=== PATIENT | female | born 1990 | race Two or more races ===

== ENCOUNTER → 2024-03-15 | Outpatient (CLI) | payer OTHER, SELFPAY ==
[2024-03-15 10:58] LABS: Collection Type, Urine Clean Catch
[2024-03-15 11:14] LABS: Basophils % (Auto) 1 % (0-2.5); Eosinophils # (Auto) 0.1 Thou/mm3 (0.0-0.5); Eosinophils % (Auto) 1 % (0-10); Hematocrit 38.4 % (36.0-46.0); Hemoglobin 13.4 g/dL (12.0-16.0); Immature Granulocytes % (Auto) 0 % (0-0); Immature Granulocytes Auto 0.02 Thou/mm3 (0.00-0.00); Lymphocytes % (Auto) 17 % (10-50); Mean Corpuscular HGB Conc 34.9 g/dl (31.0-37.0); Mean Corpuscular Hemoglobin 31.8 pg (25.0-35.0); Mean Corpuscular Volume 91 fL (80-100); Monocytes # (Auto) 0.4 Thou/mm3 (0.0-0.8); Monocytes % (Auto) 6 % (0-12); Neutrophils # (Auto) 4.6 Thou/mm3 (1.8-7.7); Neutrophils % (Auto) 75 % (37-80); Nucleated Red Blood Cell % 0 /100 WBC (0); Platelet Count 204 Thou/mm3 (140-440); RDW Standard Deviation 39.6 fL (36.4-46.3); Red Blood Count 4.22 Miln/mm3 (4.00-5.20); White Blood Count 6.1 Thou/mm3 (3.6-11.0)
[2024-03-15 11:15] LABS: Bilirubin,Urine Negative (Negative); Blood,Urine Negative (Negative); Clarity,Urine Clear (Clear/Hazy); Color,Urine Lt-Yellow (Lt Yel-Yel); Culture Indicated,Urine Not Indicated; Glucose, Urine Negative (Negative); Ketones,Urine Negative (Negative); Leukocyte Esterase,Urine Negative (Negative); Nitrite,Urine Negative (Negative); PH,Urine 5.5 (5.0-7.0); Protein,Urine Negative (Neg - Trace); RBC,Urine 1 /hpf (0-3); Squamous Epithelial Cell,Urine 1 /hpf (0-5); Urobilinogen,Urine Negative mg/dL (0.0-1.0); WBC,Urine 1 /hpf (0-5)
[2024-03-15 11:43] LABS: Alanine Aminotransferase 10 U/L (10-49); Albumin, Serum 4.7 gm/dL (3.5-5.0); Albumin/Globulin Ratio 2.2 (1.2-2.2); Alkaline Phosphatase 61 U/L (46-116); Anion Gap 8 (7-16); Aspartate Amino Transferase 15 U/L (0-34); BUN/Creatinine Ratio 17 Ratio (12-20); Bilirubin,Total 0.8 mg/dL (0.3-1.2); Blood Urea Nitrogen 12 mg/dL (9-23); Calcium 9.3 mg/dL (8.3-10.6); Calcium (Corrected) 9.3 mg/dL (8.5-10.1); Carbon Dioxide 25.7 mMol/L (20.0-31.0); Cardiac Risk Estimate 2.6 RATIO (3.7-5.6); Chloride 105 mMol/L (98-107); Cholesterol 153 mg/dL (132-200); Creatinine (Component) 0.7 mg/dL (0.6-1.3); Globulin 2.1 gm/dL (2.3-3.5); Glucose 86 mg/dL (74-106); HDL Cholesterol 58 mg/dL (40-60); LDL Cholesterol,Calculated 85 mg/dL (0-130); Osmolality,Calculated 276 (275-295); Sodium 139 mMol/L (136-145); Thyroid Stimulating Hormone 0.45 uIU/mL (0.55-4.78); Total Protein 6.8 gm/dL (5.7-8.2); Triglycerides 51 mg/dL (30-150); eGFR > 60 See Note
== END | disposition home or self-care (01) ==
LOC: COPL 10:03
PROVIDERS: PCP Family Medicine; Referring Provider Physician Assistant; Visit Provider Physician Assistant
DX: Z00.00 Encounter for general adult medical examination without abnormal findings (principal); E04.1 Nontoxic single thyroid nodule
CPT/HCPCS: 36415; 80053; 80061; 81001; 82306; 84443; 85025

== ENCOUNTER → 2024-04-01 | Outpatient (CLI) | payer OTHER, SELFPAY ==
--- NOTE | 2024-04-01 11:45 | XR_ITS ---
Examination: Thyroid sonography complete TECHNIQUE: Grayscale sonographic images thyroid lobes are color flow analysis Exam date and time: April 01, 2024 1215 hours INDICATIONS: Thyroid sonogram July 11, 2023 pole right thyroid nodule 7 mm FINDINGS: Right thyroid 4.6 x 2.1 x 2.0 cm Upper pole nodule 10 x 5 x 9 mm Left thyroid 5.3 x 1.4 x 1.9 cm Upper pole cyst 3 x 2 mm Midpole nodule 3 x 3 mm IMPRESSION: Enlarging upper pole right thyroid nodule, consider ultrasound-guided fine-needle aspiration of this nodule
== END | disposition home or self-care (01) ==
LOC: CDIM 11:29
PROVIDERS: PCP Family Medicine; Referring Provider Physician Assistant; Visit Provider Physician Assistant
DX: E04.1 Nontoxic single thyroid nodule (principal)
CPT/HCPCS: 76536

== ENCOUNTER 2024-08-21 10:36 | Outpatient (AMB) | payer OTHER, SELFPAY ==
--- NOTE | 2024-08-21 10:53 | AMB.GYNCLNOT ---
Vital Signs 08/21/24 11:06 Height 1.63 m Height Method Stated Weight 68.266 kg Weight Measurement Method Standing Scale BMI 25.8 BP 131/87 H Blood Pressure Source Automatic Cuff Blood Pressure Location Left Upper Arm Position Sitting Respiration 18 Pulse 89 Pulse Source Monitor Temp 97.2 F Temp Source Oral Pulse Oximetry (%) 98 Oxygen Delivery Method Room Air Allergies/Home Meds Allergies & Medications Allergies egg Allergy (Verified 08/21/24 10:53) Diarrhea Medication Reconciliation escitalopram oxalate 10 mg tablet (Lexapro) 10 mg PO QDAY 08/21/24 [History] fluconazole 150 mg tablet 150 mg PO QWEEK 6 weeks #6 tabs 08/21/24 [Rx] Intake Visit Data Collection New Patient or Established: New Patient not seen in past 3 years at [facility] (considered New) Reason for Visit:: HERE FOR HORMONAL CONERNS Seen by Clinical Staff ONLY (RN/MA): No Planned Giving Officer Required: No Do You Feel Safe at Home: Yes Authorities Contacted: N/A PCP or OBGYN visit in last 3 months: Yes Hx Now: No Are you currently on any form of Control: No Last menstrual period: 08/06/24 Pain Present Currently: No Pain Scale Used: Maya-Lopez/Numerical Pain scale:: 0 Smoking Status Smoking Status: Never smoker 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 Usually cycles are 28 days apart. Wants to be checked for PCOS. Has a history of two vaginal deliveries in the past. She has a 13-year-old son who weighed 7 pounds at and was a vacuum delivery in [place] and she has a 6-year-old daughter who was a little under 6 pounds who was born 3 to 4 weeks early delivered at [place] Same father of the baby for both pregnancies Patient is currently trying to get for greater than a year CLINICAL DOCUMENTATION SPEC: Past Medical History Past Medical History: Yes Hx Gastrointestinal Disorders and No Hx Diabetes Mellitus Type 2 Additional Operations/Hospitalizations (year & reason): Cholecystectomy 2015 Other Relevant History: Recurrent yeast infections is circumcised -1-0-2 x 2 Anxiety /depression Patient states her weight can fluctuate up to 20 pounds within a couple months. She is currently on an injection for weight loss. She has some type of thyroid problem with the nodule they are working up. She may be hyperthyroid. She has an appointment coming up with an char dust cleaner and salvager. Questionnaires Covid-19 Vaccine Questionnaire Has patient been vacinated for Covid-19 Have you been vacinated for Covid-19: Yes PHQ-9 PHQ-2 Over the last 2 weeks, how often have you been bothered by any of the following problems? 1. Little interest or pleasure in doing things: not at all 2. Feeling down, depressed, or hopeless: not at all Total score: 0 PHQ-9 3. Trouble falling or staying asleep, or sleeping too much: Not at all 4. Feeling tired or having little energy: Not at all 5. Poor appetite or overeating: Not at all 6. Feeling bad about yourself - or that you are a failure or have let yourself or your family down: Not at all 7. Trouble concentrating on things, such as reading the newspaper or watching television: Not at all 8. Moving or speaking so slowly that other people could have noticed? - Or the opposite - being so fidgety or restless that you have been moving around a lot more than usual: not at all 9. Thoughts that you would be better off or of hurting yourself in some way: Not at all Total score: 0 If you checked off any problems, how difficult have these problems made it for you to do your work, take care of things at home, or get along with other people?: not difficult at all Source: Developed by Drs. Rudy Sanchez, Eliana Senior, Ike Ray and colleagues, with an educational joan from [employer]. 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 She wants all her hormones tested. She thinks she has PCOS. She stated that in into left lower quadrant pain and some irregular vaginal bleeding. She reports frequent yeast infections and she has been trying to get more than a year. She has been with the same partner for all her pregnancies ,her oldest son is 13 years old she also has a 6-year-old daughter. Both were vaginal deliveries. No history of dysmenorrhea or extremely heavy cycles. No painful periods. No painful intercourse. No history of abdominal surgery to cause scarring in her pelvis. No history of endometriosis. She is on Lexapro for anxiety and is on one of the Ozempic type medications for weight loss. Patient states her weight fluctuates up to 15 to 20 pounds in a month or 2. Recently she has been diagnosed with some type of thyroid nodule and states she is hyperthyroid and has an appointment with an char dust cleaner and salvager. Her primary is Dr. Nate Andrade and she was told not to get util her thyroid is worked up and I definitely agree with this. The patient reports constipation, bloating ,abnormal bleeding ,vaginal itching, fertility concerns also anxiety and depression. Exam General Limitations: no limitations General Appearance: alert, in no apparent distress, comfortable, cooperative, healthy appearing, well groomed and anxious (Talks very quickly) Neck Neck exam: Present normal inspection, full ROM and trachea midline Chest Chest inspection: Present normal inspection and symmetric chest wall rise Resp Respiratory exam: Present normal lung sounds bilaterally Card Cardiovascular exam: Present regular rate, normal rhythm and normal heart sounds Abdominal Abdominal exam: Present soft and normal bowel sounds Psych Psychiatric exam: Present normal affect and normal mood Skin Skin exam: Present warm, dry, intact and normal color Office Procedures OB Clinic LOC & Office Proc's Nursing/Assessment Patient Status: Initial/New Patient OB Clinic Nursing Assessment: Medication Reconciliation, Update PMH in EMR and Vital Signs OB Clinic Coordination of Care: Education Complex Pt/Fam, Consent,records obtained, informed consent, Lab and Imaging orders, Results/Orders obtained and Staff clarify orders Miscellaneous Interventions: Pelvic/Pap Smear Set up New Patient Charge New Patient Point Assignment: 1104 New Patient Point Charge: DRUG ABUSE TREATMENT SPECIALIST Level 3 (5215-1071) Assessment & Plan Diagnosis / Problem List (1) DUB (dysfunctional uterine bleeding): Status: Acute Assessment and Plan: Patient would like lab work checked. Check LH FSH estradiol. Check all thyroid levels. Check a prolactin. Check a transvaginal ultrasound. Patient states that she is not diabetic so this was not checked. Encouraged the patient to follow-up with her char dust cleaner and salvager about her thyroid nodule and thyroid medication. Discouraged until her thyroid condition is stable. Reassurance given that patient most likely does not have PCOS. I would recommend her significant other see his primary care to get a semen analysis and told her 40% of the time with infertility the underlying cause is a male factor. I am unsure why the patient gains and loses weight quickly. 10 to 20 pounds in a month or two seems extreme. Patient should discuss this further with her thyroid specialist. We will call her for follow-up once her lab and ultrasound are back. (2) Yeast vaginitis: Status: Acute Assessment and Plan: Diflucan weekly x 6 weeks
[2024-08-21 11:06] VITALS: BP 131/87; PULSE 89; RESP 18; TEMP 36.2; O2SAT 98; BMI 25.8
== END 2024-08-21 11:58 | disposition home or self-care (01) ==
LOC: HODSOBC 10:36
PROVIDERS: PCP Family Medicine; Referring Provider Family Medicine; Supervising Provider Obstetrics & Gynecology; Visit Provider Obstetrics & Gynecology
DX: N93.8 Other specified abnormal uterine and vaginal bleeding (principal); E04.1 Nontoxic single thyroid nodule; B37.31 Acute candidiasis of vulva and vagina
CPT/HCPCS: 99203; G0463

== ENCOUNTER → 2024-08-21 | Outpatient (CLI) | payer OTHER, SELFPAY ==
[2024-08-21 17:01] LABS: Free T3 2.5 pg/mL (2.3-4.2); Free T4 (Free Thyroxine) 1.17 ng/dL (0.89-1.76); Thyroid Stimulating Hormone 0.71 uIU/mL (0.55-4.78)
[2024-08-21 17:02] LABS: Follicle Stimulating Hormone 3.13 mIU/mL (See Note)
== END | disposition home or self-care (01) ==
LOC: COPL 15:53
PROVIDERS: PCP Family Medicine; Referring Provider Obstetrics & Gynecology; Visit Provider Obstetrics & Gynecology
DX: N93.8 Other specified abnormal uterine and vaginal bleeding (principal)
CPT/HCPCS: 36415; 82670; 82681; 83001; 83002; 84146; 84439; 84443; 84481

== ENCOUNTER → 2024-09-09 | Outpatient (CLI) | payer OTHER, SELFPAY ==
--- NOTE | 2024-09-09 14:00 | XR_ITS ---
Examination: Transvaginal ultrasound of the pelvis, complete Technique: Transvaginal sonographic images pelvis performed using porras scale imaging Exam date and time: September 09, 2024 1426 hours INDICATIONS: Pelvic pain and vaginal bleeding beginning 2 months ago FINDINGS: Uterus 9.3 cm no uterine mass or intrauterine gestation Endometrial stripe 0.9 cm Right ovary 3.6 cm arterial flow multiple follicles, septated cyst 18 x 19 mm Left ovary 2.7 cm arterial flow Mild fluid in the cul-de-sac IMPRESSION: Septated right ovarian cyst 13 x 18 x 19 mm, recommend 6 month follow-up.
== END | disposition home or self-care (01) ==
LOC: CDIM 14:01
PROVIDERS: PCP Family Medicine; Referring Provider Obstetrics & Gynecology; Visit Provider Obstetrics & Gynecology
DX: N83.291 Other ovarian cyst, right side (principal)
CPT/HCPCS: 76830

== ENCOUNTER → 2024-10-01 | Outpatient (CLI) | payer OTHER, SELFPAY ==
[2024-10-01 14:24] LABS: Collection Type, Urine Clean Catch; WBC,Urine 0 /hpf (0-5)
[2024-10-01 14:24] LABS: Basophils # (Auto) 0.0 Thou/mm3 (0.0-0.2); Basophils % (Auto) 1 % (0-2.5); Eosinophils # (Auto) 0.1 Thou/mm3 (0.0-0.5); Eosinophils % (Auto) 1 % (0-10); Hematocrit 38.6 % (36.0-46.0); Hemoglobin 12.9 g/dL (12.0-16.0); Immature Granulocytes Auto 0.01 Thou/mm3 (0.00-0.00); Lymphocytes # (Auto) 1.3 Thou/mm3 (1.0-4.8); Lymphocytes % (Auto) 21 % (10-50); Mean Corpuscular HGB Conc 33.4 g/dl (31.0-37.0); Mean Corpuscular Hemoglobin 31.8 pg (25.0-35.0); Mean Corpuscular Volume 95 fL (80-100); Monocytes # (Auto) 0.3 Thou/mm3 (0.0-0.8); Monocytes % (Auto) 4 % (0-12); Neutrophils # (Auto) 4.7 Thou/mm3 (1.8-7.7); Neutrophils % (Auto) 73 % (37-80); Nucleated Red Blood Cell # 0.00 Thou/mm3 (0.00-0.00); Nucleated Red Blood Cell % 0 /100 WBC (0); Platelet Count 227 Thou/mm3 (140-440); RDW Standard Deviation 41.7 fL (36.4-46.3); Red Blood Count 4.06 Miln/mm3 (4.00-5.20); White Blood Count 6.4 Thou/mm3 (3.6-11.0)
[2024-10-01 14:42] LABS: Alanine Aminotransferase 13 U/L (10-49); Albumin, Serum 4.8 gm/dL (3.5-5.0); Albumin/Globulin Ratio 2.1 (1.2-2.2); Alkaline Phosphatase 70 U/L (46-116); Amylase 103 U/L (30-118); Anion Gap 10 (7-16); Aspartate Amino Transferase 20 U/L (0-34); BUN/Creatinine Ratio 9 Ratio (12-20); Bilirubin,Total 0.3 mg/dL (0.3-1.2); Blood Urea Nitrogen 7 mg/dL (9-23); Calcium 9.3 mg/dL (8.3-10.6); Calcium (Corrected) 9.3 mg/dL (8.5-10.1); Carbon Dioxide 27.7 mMol/L (20.0-31.0); Chloride 104 mMol/L (98-107); Creatinine (Component) 0.8 mg/dL (0.6-1.3); Globulin 2.3 gm/dL (2.3-3.5); Glucose 101 mg/dL (74-106); Lipase 36 U/L (12-53); Osmolality,Calculated 281 (275-295); Potassium 3.7 mMol/L (3.4-5.1); Sodium 142 mMol/L (136-145); Total Protein 7.1 gm/dL (5.7-8.2); eGFR > 60 See Note
[2024-10-01 14:43] LABS: Free T4 (Free Thyroxine) 1.24 ng/dL (0.89-1.76); Thyroid Stimulating Hormone 0.74 uIU/mL (0.55-4.78)
[2024-10-01 15:37] LABS: Bilirubin,Urine Negative (Negative); Blood,Urine Negative (Negative); Clarity,Urine Clear (Clear/Hazy); Color,Urine Lt-Yellow (Lt Yel-Yel); Glucose, Urine Negative (Negative); Ketones,Urine Negative (Negative); Leukocyte Esterase,Urine Positive (Negative); Nitrite,Urine Negative (Negative); PH,Urine 7.0 (5.0-7.0); Protein,Urine Negative (Neg - Trace); RBC,Urine 2 /hpf (0-3); Specific Gravity,Urine 1.017 (1.001-1.035); Squamous Epithelial Cell,Urine 4 /hpf (0-5); Urobilinogen,Urine Negative mg/dL (0.0-1.0)
[2024-10-10 03:06] LABS: Thyroglobulin Antibodies <1 IU/mL (< OR = 1)
[2024-10-10 06:20] LABS: T3,Total* 89 ng/dL (76-181); TSI, Thyroid Stimulating Ig* <89 % baseline (<140); Thyroglobulin 15.8 ng/mL; Thyroid Peroxidase Antibodies* <1 IU/mL (<9); Thyrotropin-Binding Inhib Ig* <1.00 IU/L (< OR = 2.00)
== END | disposition home or self-care (01) ==
PROVIDERS: PCP Specialist; Referring Provider Physician Assistant; Visit Provider Nurse Practitioner Family
DX: R94.6 Abnormal results of thyroid function studies (principal); R10.32 Left lower quadrant pain; R10.31 Right lower quadrant pain; R14.0 Abdominal distension (gaseous); R11.0 Nausea
CPT/HCPCS: 36415; 80053; 81001; 82150; 83519; 83690; 84432; 84439; 84443; 84445; 84480; 85025; 86376; 86800

== ENCOUNTER → 2024-10-15 | Outpatient (CLI) | payer OTHER, SELFPAY | END | disposition home or self-care (01) | PROVIDERS: PCP Physician Assistant; Referring Provider Specialist; Visit Provider Specialist | DX: R10.32 Left lower quadrant pain (principal) | CPT/HCPCS: 74018 ==

== ENCOUNTER 2024-10-18 11:20 | Day surgery (SDC) | payer OTHER, SELFPAY ==
[2024-10-17 11:22] VITALS: BMI 25.7
[2024-10-17 13:27] LABS: HCG Qualitative,Urine Negative
[2024-10-18 12:02] VITALS: BP 133/86; PULSE 65; RESP 20; TEMP 36.4; O2SAT 100; BMI 26.7
[2024-10-18 14:27] VITALS: BP 121/86; PULSE 75; RESP 16; O2SAT 100
[2024-10-18] MEDS: RINGERS LACTATED 1000 ML 1,000 ML 125 ML IV (14:27)
[2024-10-18 15:10] VITALS: BP 109/68; PULSE 71; RESP 17; TEMP 36.4; O2SAT 96
[2024-10-18 15:20] VITALS: BP 116/80; PULSE 72; RESP 16; O2SAT 96
[2024-10-18 15:30] VITALS: BP 115/87; PULSE 77; RESP 16; O2SAT 96
[2024-10-18 15:40] VITALS: BP 128/88; PULSE 75; RESP 16; TEMP 36.8; O2SAT 96
== END 2024-10-18 15:45 | disposition home or self-care (01) ==
PROVIDERS: PCP Physician Assistant; Referring Provider Specialist; Visit Provider Specialist
PROC: 0DJD8ZZ Inspection of Lower Intestinal Tract, Via Natural or Artificial Opening Endoscopic (ICD-10-PCS; CPT 45378; principal; 2024-10-18 12:30)
PROC: (CPT 43239; 2024-10-18 12:30)
DX: R19.4 Change in bowel habit (principal); R10.30 Lower abdominal pain, unspecified; R10.10 Upper abdominal pain, unspecified; K64.1 Second degree hemorrhoids; Z90.49 Acquired absence of other specified parts of digestive tract
CPT/HCPCS: 45378; 81025; A4649; J7120

== ENCOUNTER 2024-10-23 09:50 | Outpatient (AMB) | payer OTHER, SELFPAY ==
[2024-10-23 10:20] VITALS: BP 117/77; PULSE 71; RESP 16; TEMP 36.6; O2SAT 98; BMI 26.4
--- NOTE | 2024-10-23 10:20 | AMB.GYNCLNOT ---
Vital Signs 10/23/24 10:20 Height 1.63 m Height Method Stated Weight 69.853 kg Weight Measurement Method Standing Scale BMI 26.4 BP 117/77 Blood Pressure Source Automatic Cuff Blood Pressure Location Left Upper Arm Position Sitting Respiration 16 Pulse 71 Pulse Source Monitor Temp 97.8 F Temp Source Oral Pulse Oximetry (%) 98 Oxygen Delivery Method Room Air Allergies/Home Meds Allergies & Medications Allergies egg Allergy (Verified 10/23/24 10:21) Diarrhea Medication Reconciliation escitalopram oxalate 10 mg tablet (Lexapro) 10 mg PO QDAY 08/21/24 [History Confirmed 10/23/24] Intake Visit Data Collection New Patient or Established: Established Patient (seen at [facility] within 3 years) Reason for Visit:: DISCUSS LABS AND ULTRASOUND RESULTS Seen by Clinical Staff ONLY (RN/MA): No Electrician Apprentice Powerhouse Required: No Do You Feel Safe at Home: Yes Authorities Contacted: N/A PCP or OBGYN visit in last 3 months: Yes Hx Now: No Are you currently on any form of Control: Yes Last menstrual period: 10/14/24 Pain Present Currently: No Pain Scale Used: Maya-Lopez/Numerical Smoking Status Smoking Status: Never smoker Inclusion Teacher history Inclusion Teacher History Menstrual regularity: regular Flow: heavy Monthly: Yes How many days does period last: 5 Age at menarche: 9 Currently sexually active: Yes 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 1. Little interest or pleasure in doing things: not at all 2. Feeling down, depressed, or hopeless: not at all Total score: 0 PHQ-9 3. Trouble falling or staying asleep, or sleeping too much: Not at all 4. Feeling tired or having little energy: Not at all 5. Poor appetite or overeating: Not at all 6. Feeling bad about yourself - or that you are a failure or have let yourself or your family down: Not at all 7. Trouble concentrating on things, such as reading the newspaper or watching television: Not at all 8. Moving or speaking so slowly that other people could have noticed? - Or the opposite - being so fidgety or restless that you have been moving around a lot more than usual: not at all 9. Thoughts that you would be better off or of hurting yourself in some way: Not at all Total score: 0 Source: Developed by Drs. Rudy Sanchez, Eliana Senior, Ike Ray and colleagues, with an educational joan from [employer]. 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 She desires . Review of Systems Review of Systems Narrative Review of Systems: No abnormal bleeding no pain with cycles. Her cycles are regular and monthly. Exam Narrative Physical exam: Remainder of physical exam is deferred as this is a counseling visit. General Limitations: no limitations General Appearance: alert, in no apparent distress, comfortable, cooperative and healthy appearing Results Objective Laboratory: Reviewed labs from 10/01 hemoglobin 12.9. CBC normal ,urinalysis negative ,electrolyte panel normal, liver tests normal, comprehensive metabolic normal ,all her thyroid levels were normal including TSH, free T4, total T3 ,thyroglobulin, thyroid peroxidase and thyroglobulin antibody was also negative. Prolactin was normal. FSH was 3.13 normal LH 3 normal total estrogen normal. No signs of polycystic ovarian syndrome. Office Procedures OB Clinic LOC & Office Proc's Nursing/Assessment Patient Status: Established Patient OB Clinic Nursing Assessment: Medication Reconciliation, Update PMH in EMR and Vital Signs OB Clinic Coordination of Care: Complex Care and Chronic Disease 1-5, Consent,records obtained, informed consent, Education Simp Pt/Fam, Lab and Imaging orders, Results/Orders obtained and Staff clarify orders Established Patient Charge Established Patient Point Assignment: 105 Established Patient Point Charge: EP Level 3 (80-115) Assessment & Plan Diagnosis / Problem List (1) Infertility counseling: Status: Acute Plan: I explained to the patient she is having regular cycles. Her labs are normal. There is no signs of PCOS. Her thyroid is normal, her prolactin is normal. She is not anovulatory. Her spouse has not ever had a semen analysis. She states he is on no medications and is otherwise healthy. I explained 40% infertility is due to male factor. I would recommend a semen analysis for her partner at this time. If that is normal we might try Clomid. If she still not , we could authorize for an HSG. Patient states she would never go as far as IVF. I did explain sometimes she attempts Clomid/ IUI versus injectables\IUI through a director of individual giving. I suggested she follow-up to get a semen analysis with her at this time as her workup is completely negative. Plan Her partner is to see his primary care to get an order for semen analysis Additional Plan Follow Up: 1 Year
== END 2024-10-23 11:17 | disposition home or self-care (01) ==
LOC: HODSOBC 09:50
PROVIDERS: Supervising Provider Obstetrics & Gynecology; Visit Provider Obstetrics & Gynecology
DX: Z31.69 Encounter for other general counseling and advice on procreation (principal)
CPT/HCPCS: 99213; G0463

== ENCOUNTER 2024-11-29 14:30 | Outpatient (AMB) | payer OTHER, SELFPAY ==
--- NOTE | 2024-11-29 14:32 | AMB.GYNCLNOT ---
Allergies/Home Meds Allergies & Medications Allergies egg Allergy (Verified 11/29/24 14:32) Diarrhea Medication Reconciliation escitalopram oxalate 10 mg tablet (Lexapro) 10 mg PO QDAY 08/21/24 [History Confirmed 11/29/24] Intake Visit Data Collection New Patient or Established: Established Patient (seen at [facility] within 3 years) Reason for Visit:: DISCUSS LAB RESULTS Consent obtained for Telemed Visit: Yes Seen by Clinical Staff ONLY (RN/MA): No Self Contained Behavior Unit Teacher Required: No Do You Feel Safe at Home: Yes Authorities Contacted: N/A PCP or OBGYN visit in last 3 months: Yes Hx Now: No Are you currently on any form of Control: No Last menstrual period: 11/08/24 Pain Present Currently: No Pain Scale Used: Maya-Lopez/Numerical Pain scale:: 0 Smoking Status Smoking Status: Never smoker For Telemed visit only Telemed Video/Phone Visit: Yes Verbal consent obtained for Telemed visit?: Yes Verbal Consent witness name: BRIANNA TEGAN Digital Developer history Digital Developer History Menstrual regularity: regular Flow: normal Monthly: Yes How many days does period last: 5 Age at menarche: 10 Currently sexually active: Yes 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 1. Little interest or pleasure in doing things: not at all 2. Feeling down, depressed, or hopeless: not at all Total score: 0 PHQ-9 3. Trouble falling or staying asleep, or sleeping too much: Not at all 4. Feeling tired or having little energy: Not at all 5. Poor appetite or overeating: Not at all 6. Feeling bad about yourself - or that you are a failure or have let yourself or your family down: Not at all 7. Trouble concentrating on things, such as reading the newspaper or watching television: Not at all 8. Moving or speaking so slowly that other people could have noticed? - Or the opposite - being so fidgety or restless that you have been moving around a lot more than usual: not at all 9. Thoughts that you would be better off or of hurting yourself in some way: Not at all Total score: 0 Source: Developed by Drs. Rudy Sanchez, Eliana Senior, Ike Ray and colleagues, with an educational joan from [employer]. 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 She would like to discuss a semen analysis ordered on her , Eric Ortega. Patient's primary care is Dr. Nate Andrade who ordered his semen analysis. I have the results from 11/27/2024. I actually logged onto the portal to make sure we are not missing part of his semen analysis and this is all that is reported. The temperature is normal, the sperm count is 51 million which is normal, and the sperm motility is low at 20% which should be greater than 50%. There were no other parameters checked including pH, white count,viscosity abnormal forms excetra. I reviewed the semen analysis with Juana. She also has a copy of the semen analysis and we reviewed it together. I suggested she have her evaluated at [facility] in [place]. I did give her the phone number to follow-up. She might need a referral from Dr. Andrade for her . Once referred, they will most likely repeat a semen analysis. If it is the same, they might suggest medications for to improve his sperm quality. At this point, the patient was asking about Clomid. She is ovulating and having regular monthly cycles. We worked her up completely with labs and an ultrasound and this is all normal. I told the patient if we started Clomid it would not likely improve her chance of getting until we troubleshoot her 's sperm. At this point if she wanted to aggressively pursue , I would suggest an insemination which would have to be performed at a reproductive endocrinology office. At this point,the patient will have her referred to a urologist. I did strongly recommend the urology group in [place] at [facility]. All questions were answered to the patient's satisfaction. She will call back once her gets evaluated. Office Procedures OBC Clinic LOC & Office Proc's Nursing/Assessment Patient Status: Established Patient OB Clinic Nursing Assessment: Medication Reconciliation and Update PMH in EMR OB Clinic Coordination of Care: Complex Care and Chronic Disease 1-5, Consent,records obtained, informed consent, Education Simp Pt/Fam, Results/Orders obtained and Staff clarify orders Established Patient Charge Established Patient Point Assignment: 75 Telehealth If patient is seen using Teleconference methods, complete New/Est section, but DO NOT michael points only michael the correct Telemed visit type Telemed Phone/Video with patient at home & Dr,PA,CUTTER HOT KNIFE: Yes Assessment & Plan Diagnosis / Problem List (1) Infertility counseling: Status: Acute Plan: Patient desires . Patient's semen analysis was reviewed on TeleMed today. He is count is normal however his motility is low. Recommend referral to urology especially a specialized urology group in [facility] to troubleshoot his semen analysis.
== END 2024-11-29 16:31 | disposition home or self-care (01) ==
LOC: HODSOBC 14:30
PROVIDERS: Supervising Provider Obstetrics & Gynecology; Visit Provider Obstetrics & Gynecology
DX: N97.9 Female infertility, unspecified (principal)
CPT/HCPCS: 99212; G0463

== ENCOUNTER → 2025-02-05 | Outpatient (CLI) | payer OTHER, SELFPAY ==
--- NOTE | 2025-02-05 17:11 | XR_ITS ---
EXAMINATION: Cervical spine 3 views TECHNIQUE: AP lateral coned AP odontoid cervical spine 3 views Date and time: February 05, 2025, 1721 hours, comparison 11/24/2022 INDICATIONS: Neck pain beginning 10 months ago radiating down the left arm. FINDINGS: Straightening normal cervical lordosis. Minimal disc narrowing C5-C6 Intact odontoid No cervical fracture IMPRESSION: Minimal disc narrowing C5-C6
--- NOTE | 2025-02-05 17:11 | XR_ITS ---
EXAMINATION: Lumbar spine 3 views TECHNIQUE: AP lateral: Lateral lower lumbar spine 3 views Date and time: February 05, 2025, 1717 hours INDICATIONS: Low back pain 8 years. FINDINGS: Adequate alignment lumbar vertebral bodies No lumbar fracture No spondylolisthesis Mild disc narrowing L4-L5 Moderate disc narrowing L5-S1 IMPRESSION: Moderate degenerative disc disease L5-S1
== END | disposition home or self-care (01) ==
LOC: CDIM 17:05
PROVIDERS: PCP Physician Assistant; Referring Provider Chiropractor; Visit Provider Chiropractor
DX: M48.02 Spinal stenosis, cervical region (principal); M51.370 Other intervertebral disc degeneration, lumbosacral region with discogenic back pain only
CPT/HCPCS: 72040; 72100